=== PATIENT | female | born 1995 | race Asian ===

== ENCOUNTER 2016-11-16 20:31 | Inpatient (IN) | payer MEDICAID ==
[~2016-11-16] VITALS: Ht 157.5 cm; Wt 76.4 kg
[2016-11-16] MEDS ORDERED: LACTATED RINGERS 1,000 ML IV SCH ×3 (20:58→21:41)
[2016-11-16] MEDS: OXYTOCIN 30U/ 0.9% NaCL 500ML 500 ML IV SCH ×2 (20:58→21:41)
[2016-11-16] MEDS ORDERED: ALBUTEROL SULFATE 2.5 MG/3 ML NPPB PRN (21:00)
[2016-11-16] MEDS ORDERED: METOCLOPRAMIDE 5 MG/ML, 2ML IV ONE (21:00)
[2016-11-16] MEDS ORDERED: PROMETHAZINE 25 MG/ML, 1ML IV PRN (21:00)
[2016-11-16] MEDS ORDERED: MIDAZOLAM 1 MG/ML, 2ML IV PRN (21:00)
[2016-11-16] MEDS ORDERED: HYDROmorphone 1 MG/ML, 1ML IV PRN (21:00)
[2016-11-16] MEDS ORDERED: FENTANYL PF 100 MCG/2ML IV PRN (21:00)
[2016-11-16] MEDS ORDERED: LABETALOL 5MG/ML, 20ML IV PRN (21:00)
[2016-11-16] MEDS ORDERED: LACTATED RINGERS 1,000 ML IVBOLUS ONE (21:00)
[2016-11-16] MEDS ORDERED: SODIUM CITRATE/CITRIC ACID 30 ML UDC PO ONE (21:00)
[2016-11-16] MEDS ORDERED: OXYcodone 5 MG/5 ML ORAL.SOL UDC PO PRN (21:00)
[2016-11-16] MEDS ORDERED: ONDANSETRON 2MG/ML, 2ML IVPush PRN (21:00)
[2016-11-16] MEDS ORDERED: EPHEDRINE 50 MG/ML, 1ML IVPush PRN (21:00)
[2016-11-16] MEDS ORDERED: MEPERIDINE/PF 25MG/0.5ML IVPush PRN (21:00)
[2016-11-16] MEDS ORDERED: hydrALAzine 20 MG/ML, 1ML IV PRN (21:00)
[2016-11-16] MEDS ORDERED: HYDROcodone/APAP 7.5-325MG/15ML UDC PO PRN (21:00)
[2016-11-16] MEDS ORDERED: FENTANYL PF 100 MCG/2ML ONE ×2 (21:02→21:35)
[2016-11-16] MEDS ORDERED: METOCLOPRAMIDE 5 MG/ML, 2ML ONE ×2 (21:02→21:35)
[2016-11-16] MEDS ORDERED: SODIUM CITRATE/CITRIC ACID 30 ML UDC ONE ×2 (21:02→21:35)
[2016-11-16] MEDS ORDERED: NEWBORN KIT ONE (21:02)
[2016-11-16] MEDS: PLEASE ENTER HEIGHT AND WEIGHT MC SCH (21:30)
[2016-11-16] MEDS ORDERED: KETOROLAC 30 MG/1 ML ONE (21:35)
[2016-11-16] MEDS ORDERED: DEXAMETHASONE 4 MG/ML, 1ML ONE (21:35)
[2016-11-16] MEDS ORDERED: CEFAZOLIN 1,000 MG ONE (21:35)
[2016-11-16] MEDS ORDERED: OXYTOCIN 10 UNITS/ML, 1ML ONE (21:35)
[2016-11-16] MEDS ORDERED: ONDANSETRON 2MG/ML, 2ML ONE (21:35)
[2016-11-16] MEDS: LACTATED RINGERS 1,000 ML IV SCH (21:41)
[2016-11-16] MEDS ORDERED: OXYcodone/APAP 5/325MG TABLET PO PRN (22:00)
[2016-11-16] MEDS ORDERED: GLYCERIN ADULT SUPP PR PRN (22:00)
[2016-11-16] MEDS ORDERED: MEPERIDINE/PF 50 MG/ML IVPush PRN (22:00)
[2016-11-16] MEDS ORDERED: ACETAMINOPHEN 325 MG TABLET PO PRN ×3 (22:00)
[2016-11-16] MEDS: KETOROLAC 30 MG/1 ML IV SCH (22:00)
[2016-11-16] MEDS ORDERED: BISACODYL 10 MG SUPP PR PRN (22:00)
[2016-11-16] MEDS ORDERED: MEPERIDINE/PF 100 MG/ML IVPush PRN (22:00)
[2016-11-16] MEDS ORDERED: MISOPROSTOL 200 MCG TABLET PR PRN (22:00)
[2016-11-16] MEDS ORDERED: SIMETHICONE 80 MG CHEW TAB PO PRN (22:00)
[2016-11-16] MEDS ORDERED: MEASLES,MUMPS&RUBELLA VACC/PF 0.5 ML SQ-VACC PRN (22:00)
[2016-11-16] MEDS ORDERED: METHYLERGONOVINE 0.2 MG/ML IM PRN (22:00)
[2016-11-16] MEDS ORDERED: CARBOPROST TROMETHAMINE 250 MCG/ML, 1ML IM PRN (22:00)
[2016-11-16] MEDS ORDERED: METOCLOPRAMIDE 5 MG/ML, 2ML IV PRN (22:00)
[2016-11-16] MEDS ORDERED: ONDANSETRON 2MG/ML, 2ML IV PRN (22:00)
[2016-11-16] MEDS ORDERED: IBUPROFEN 600 MG TABLET PO PRN (22:00)
[2016-11-16] MEDS ORDERED: CALCIUM CARBONATE 500 MG TAB.CHEW PO PRN (22:00)
[2016-11-16] MEDS ORDERED: DIPH,PERTUSS(ACELL),TET VAC/PF NC IM-VACC PRN (22:00)
[2016-11-16] MEDS ORDERED: OXYTOCIN 30U/ 0.9% NaCL 500ML 500 ML ONE (23:48)
[2016-11-17 00:40] VITALS: BP 115/68
[2016-11-17 03:20] VITALS: BP 114/64
[2016-11-17] MEDS: KETOROLAC 30 MG/1 ML IV SCH ×3 (04:12→16:12)
[2016-11-17] MEDS: PLEASE ENTER HEIGHT AND WEIGHT MC SCH ×2 (05:30→13:30)
[2016-11-17] MEDS: LACTATED RINGERS 1,000 ML IV SCH (05:41)
[2016-11-17] MEDS: OXYTOCIN 30U/ 0.9% NaCL 500ML 500 ML IV SCH ×2 (06:58→07:41)
[2016-11-17 08:02] VITALS: BP 107/71
[2016-11-17] MEDS: DOCUSATE 100 MG CAPSULE PO PRN ×2 (08:45→23:11)
[2016-11-17] MEDS: OXYcodone/APAP 5/325MG TABLET PO PRN ×2 (08:45→23:10)
[2016-11-17] MEDS ORDERED: PRENATAL VIT/IRON/FA 1 EACH TABLET PO SCH (09:00)
[2016-11-17 12:00] VITALS: BP 116/74
[2016-11-18] MEDS ORDERED: OXYC-302 PO (03:27)
[2016-11-18] MEDS ORDERED: IBUP800T PO (03:28)
[2016-11-18 07:15] VITALS: BP 104/68
== END 2016-11-18 12:47 | disposition home or self-care (01) | DRG 766 ==
LOC: LDOP 20:31 → LDIP 20:57 → 2NW 11-17 00:14
PROVIDERS: ADMIT Obstetrics & Gynecology; ATTEND Obstetrics & Gynecology
PROC: 10D00Z1 Extraction of Products of Conception, Low, Open Approach (ICD-10-PCS; principal; 2016-11-16)
DX: O34.211 Maternal care for low transverse scar from previous cesarean delivery (principal); Z37.0 Single live birth; Z87.59 Personal history of other complications of pregnancy, childbirth and the puerperium; Z3A.38 38 weeks gestation of pregnancy
CPT/HCPCS: 36415; 81001; 85025; 86850; 86900; J0690; J1100; J1885; J2405; J3010; J2590; J2765; J7120